=== PATIENT | male | born 1965 | race Caucasian/White ===

== ENCOUNTER 2016-10-28 06:41 | Emergency (ER) | payer BC ==
[~2016-10-28] VITALS: Ht 177.8 cm; Wt 80.0 kg
[2016-10-28 07:28] LABS: INFLUENZA A NONE DETECTED (NONE DETECT); INFLUENZA B NONE DETECTED (NONE DETECT)
[2016-10-28] MEDS ORDERED: AMOXICILLIN500 M2 PO (07:32)
[2016-10-28 07:51] VITALS: BP 127/83
== END 2016-10-28 07:51 | disposition home or self-care (01) | DRG 153 ==
LOC: ED 06:41
PROVIDERS: Emergency Medicine
DX: J02.0 Streptococcal pharyngitis (principal)

== ENCOUNTER 2020-03-23 15:59 | Emergency (ER) | payer BC ==
[~2020-03-23] VITALS: Ht 177.8 cm; Wt 76.8 kg
[~2020-03-23 15:59] MED LIST: AMOXICILLIN500 M2 PO
[2020-03-23 16:34] LABS: HEMATOCRIT 43.6 % (39.0-50.0); HEMOGLOBIN 14.4 g/dl (14.0-18.0); IMMATURE GRANULOCYTES 0.2 % (0.0-5.0); MEAN CELL VOLUME 95.2 fL CALC (80.0-100.0); MEAN CORPUSCULAR HGB 31.4 pG CALC (26.0-32.0); NEUT# 3.03 thou/uL (1.82-7.42); RED BLOOD COUNT 4.58 mill/uL (4.70-6.10); RED CELL DISTRI WIDTH 11.1 % (11.5-15.5)
[2020-03-23 16:48] LABS: ALBUMIN 4.5 g/dL (3.2-5.0); ALKALINE PHOSPHATASE 56 u/l (38-126); ANION GAP 12 (6-22 (CALC)); BILIRUBIN, TOTAL 0.5 mg/dL (0.0-1.4); BUN 20 mg/dL (9-20); BUN/CREATININE RATIO 16 (12-20 (CALC)); CARBON DIOXIDE 28 mmol/l (22-30); CHLORIDE 100 mmol/l (95-108); CREATININE 1.3 mg/dL (0.7-1.3); GFR 58 ML/MIN (>=60 (CALC)); GFR FOR AFR.AMER. > 60 ML/MIN (>=60 (CALC)); LIPASE 51 u/l (23-300); POTASSIUM 3.7 mmol/l (3.5-5.1); SGOT/AST 30 u/l (17-59); SODIUM 136 mmol/l (137-146); TOTAL PROTEIN 7.8 g/dL (6.3-8.2)
[2020-03-23 17:23] LABS: URINE BILIRUBIN - DIPSTICK NEGATIVE (NEGATIVE); URINE BLOOD DIPSTICK TRACE-LYSED (NEGATIVE); URINE COLOR YELLOW; URINE GLUCOSE - DIPSTICK NEGATIVE (NEGATIVE); URINE KETONE NEGATIVE (NEGATIVE); URINE LEUK ESTERASE NEGATIVE (NEGATIVE); URINE NITRITE - DIPSTICK NEGATIVE (Negative); URINE PH 5.5 (4.5-8.0); URINE PROTEIN - DIPSTICK NEGATIVE (NEG-TRACE); URINE UROBILINOGEN - DIPSTICK 0.2 E.U./dL (0.2)
[2020-03-23] MEDS ORDERED: MIRALAX3350 N1 PO (17:33)
[2020-03-23] MEDS ORDERED: CYCLOBENZAPR5 MG PO (17:33)
[2020-03-23 17:50] VITALS: BP 140/78
== END 2020-03-23 17:50 | disposition home or self-care (01) | DRG 392 ==
LOC: ED 15:59
PROVIDERS: Family Medicine
DX: R10.32 Left lower quadrant pain (principal); M54.5 Low back pain

== ENCOUNTER 2021-03-20 14:02 | Emergency (ER) | payer OTHER ==
[~2021-03-20] VITALS: Ht 177.8 cm; Wt 81.8 kg
[~2021-03-20 14:02] MED LIST changes: +CYCLOBENZAPR5 MG PO; +MIRALAX3350 N1 PO
[2021-03-20 16:09] VITALS: BP 139/75
== END 2021-03-20 16:08 | disposition home or self-care (01) ==
LOC: ED 14:02
DX: U07.1 COVID-19 (principal)

== ENCOUNTER 2022-08-31 20:23 | Emergency (ER) | payer OTHER ==
[~2022-08-31] VITALS: Ht 177.8 cm; Wt 88.0 kg
[2022-08-31] VITALS (7 sets, daily range): BP systolic 113–132; BP diastolic 68–75
[2022-08-31] MEDS ORDERED: VIBRAMYCIN100 M2 PO (22:32)
== END 2022-08-31 23:15 | disposition home or self-care (01) ==
LOC: ED 20:23
DX: J20.9 Acute bronchitis, unspecified (principal)

== ENCOUNTER 2024-04-09 09:07 | Emergency (ER) | payer OTHER ==
[~2024-04-09] VITALS: Ht 177.8 cm; Wt 77.1 kg
[~2024-04-09 09:07] MED LIST changes: +PERCOCET 5/321 COMBO PO; +PERCOCET1 TA4 PO; +VIBRAMYCIN100 M2 PO
[2024-04-09 09:13] VITALS: BP 125/75
[2024-04-09 09:15] VITALS: BP 129/81
[2024-04-09] MEDS ORDERED: DOXY-CAPS100 MG PO (09:23)
[2024-04-09] MEDS ORDERED: ERYTHROMYCIN O3.5 GM OS (09:23)
[2024-04-09 09:30] VITALS: BP 120/76
[2024-04-09 09:31] VITALS: BP 120/76
== END 2024-04-09 09:41 | disposition home or self-care (01) ==
LOC: ED 09:07
DX: H01.004 Unspecified blepharitis left upper eyelid (principal)

== ENCOUNTER 2024-06-15 12:18 | Emergency (ER) | payer OTHER ==
[2024-06-15] VITALS (7 sets, daily range): BP systolic 109–128; BP diastolic 47–78
[~2024-06-15] VITALS: Ht 177.8 cm; Wt 89.9 kg
[~2024-06-15 12:18] MED LIST changes: +DOXY-CAPS100 MG PO; +ERYTHROMYCIN O3.5 GM OS; +MULTI VIT PO
[2024-06-15 12:54] LABS: BASO% 0.6 % (0-3); EOS% 1.4 % (0-8); HEMATOCRIT 46.9 % (39.0-50.0); HEMOGLOBIN 15.7 g/dl (14.0-18.0); IMMATURE GRANULOCYTES 0.2 % (0.0-5.0); LYMPH% 33.6 % (15-41); MEAN CELL VOLUME 98.9 fL CALC (80.0-100.0); MEAN CORPUSCULAR HGB 33.1 pG CALC (26.0-32.0); MEAN CORPUSCULAR HGB CONC 33.5 g/dL CAL (32.0-36.0); MONO% 4.7 % (2-13); NEUT# 2.92 thou/uL (1.82-7.42); NEUT% 59.5 % (42-76); RED BLOOD COUNT 4.74 mill/uL (4.70-6.10); RED CELL DISTRI WIDTH 11.7 % (11.5-15.5)
[2024-06-15 12:57] LABS: URINE BILIRUBIN - DIPSTICK Negative (NEGATIVE); URINE BLOOD DIPSTICK Trace-intact (NEGATIVE); URINE GLUCOSE - DIPSTICK Negative (NEGATIVE); URINE KETONE Negative (NEGATIVE); URINE LEUK ESTERASE Negative (NEGATIVE); URINE NITRITE - DIPSTICK Negative (Negative); URINE PH 5.5 (4.5-8.0); URINE PROTEIN - DIPSTICK Negative (NEG-TRACE); URINE SPECIFIC GRAVITY 1.025; URINE UROBILINOGEN - DIPSTICK 0.2 E.U./dL (0.2)
[2024-06-15 12:58] LABS: URINE COLOR Yellow
[2024-06-15 13:04] LABS: ALBUMIN 4.4 g/dL (3.2-5.0); BILIRUBIN, TOTAL 0.5 mg/dL (0.2-1.3); CREATININE 0.8 mg/dL (0.7-1.3); POTASSIUM 3.8 mmol/l (3.5-5.1); TOTAL PROTEIN 7.5 g/dL (6.3-8.2)
== END 2024-06-15 14:14 | disposition home or self-care (01) ==
LOC: ED 12:18
PROVIDERS: Nurse Practitioner Family
DX: N43.3 Hydrocele, unspecified (principal)

== ENCOUNTER 2024-08-03 14:11 | Emergency (ER) | payer OTHER ==
[2024-08-03] VITALS (11 sets, daily range): BP systolic 105–121; BP diastolic 61–77
[~2024-08-03] VITALS: Ht 177.8 cm; Wt 98.0 kg
[2024-08-03] MEDS ORDERED: IBUPROFEN 800 MG/TAB PO ONE (15:35)
[2024-08-03] MEDS ORDERED: MUCINEX1200 MG PO (16:48)
[2024-08-03] MEDS ORDERED: MOTRIN800 MG PO (16:48)
== END 2024-08-03 17:03 | disposition home or self-care (01) ==
LOC: ED 14:11
DX: J06.9 Acute upper respiratory infection, unspecified (principal); E78.00 Pure hypercholesterolemia, unspecified; Z20.822 Contact with and (suspected) exposure to COVID-19

== ENCOUNTER 2024-09-01 16:11 | Emergency (ER) | payer OTHER ==
[~2024-09-01] VITALS: Ht 177.8 cm; Wt 89.8 kg
[2024-09-01] VITALS (12 sets, daily range): BP systolic 121–138; BP diastolic 68–83
[~2024-09-01 16:11] MED LIST changes: +MOTRIN800 MG PO; +MUCINEX1200 MG PO
[2024-09-01] MEDS ORDERED: KETOROLAC TROMETHAMINE 30 MG/ML SDV IV ONE (17:20)
[2024-09-01] MEDS ORDERED: KETOROLAC TROMETHAMINE 30 MG/ML SDV IM ONE (18:10)
[2024-09-01] MEDS ORDERED: ZITHROMAX250 MG PO (19:47)
[2024-09-01] MEDS ORDERED: AZITHROMYCIN 250 MG/TAB PO ONE (19:50)
== END 2024-09-01 20:10 | disposition home or self-care (01) ==
LOC: ED 16:11
DX: J06.9 Acute upper respiratory infection, unspecified (principal); Z20.822 Contact with and (suspected) exposure to COVID-19